=== PATIENT | female | born 1960 | race Caucasian/White ===

== ENCOUNTER 2019-02-13 19:21 | Emergency (ER) | payer MEDICARE, MEDICAID ==
[~2019-02-13] VITALS: Ht 175.3 cm; Wt 68.2 kg
[~2019-02-13 19:21] MED LIST: ACET-890 PO; ACYC-202 PO; CARB15DR23 EACH EAR; COU1T PO; COU5T PO; DIAZ10TA PO; DIVA500T9 PO; DOCU100C40 PO; ESCI10TA PO; ESOM20CA PO; FURO-150 PO; MAGN800O PO; MULT-1085 PO; OXCA300T16 PO; SIME80TA PO; [UNRECOGNIZED DRUG - OTHER] TOP; [UNRECOGNIZED DRUG - OTHER] TP
[2019-02-13 19:23] VITALS: BP 165/71
[2019-02-13] MEDS ORDERED: acetaminophen 325mg tablet PO ONE (20:45)
[2019-02-13] MEDS ORDERED: HYDROcodone/acetaminophen 5mg/325mg tablet PO ONE (21:10)
== END 2019-02-13 21:21 | disposition home or self-care (01) ==
LOC: ER 19:21
DX: S42.032A Displaced fracture of lateral end of left clavicle, initial encounter for closed fracture (principal); Z88.8 Allergy status to other drugs, medicaments and biological substances; Z79.01 Long term (current) use of anticoagulants; Z79.2 Long term (current) use of antibiotics; Z86.718 Personal history of other venous thrombosis and embolism; W18.39XA Other fall on same level, initial encounter; Y93.89 Activity, other specified; Y92.091 Bathroom in other non-institutional residence as the place of occurrence of the external cause; Y99.8 Other external cause status
CPT/HCPCS: 73000; 73030; 99284

== ENCOUNTER 2019-02-25 15:18 | Outpatient (CLI) | payer MEDICARE, MEDICAID | END 2019-02-25 15:57 | disposition home or self-care (01) | LOC: ORTHO 15:18 | PROVIDERS: ATTEND Orthopaedic Surgery | DX: S42.022D Displaced fracture of shaft of left clavicle, subsequent encounter for fracture with routine healing (principal); X58.XXXD Exposure to other specified factors, subsequent encounter | CPT/HCPCS: 73000; G0463 ==

== ENCOUNTER 2019-04-22 15:32 | Outpatient (CLI) | payer MEDICARE, MEDICAID | END 2019-04-22 16:11 | disposition home or self-care (01) | LOC: ORTHO 15:32 | PROVIDERS: ATTEND Orthopaedic Surgery | DX: S42.012D Anterior displaced fracture of sternal end of left clavicle, subsequent encounter for fracture with routine healing (principal) | CPT/HCPCS: 73000; G0463 ==

== ENCOUNTER 2019-06-26 09:44 | Outpatient (CLI) | payer MEDICARE, MEDICAID ==
[~2019-06-26 09:44] MED LIST changes: +CARB-273 EACH EAR; -CARB15DR23 EACH EAR
== END 2019-06-26 10:07 | disposition home or self-care (01) ==
LOC: ORTHO 09:44
PROVIDERS: ATTEND Orthopaedic Surgery
DX: S42.002D Fracture of unspecified part of left clavicle, subsequent encounter for fracture with routine healing (principal)
CPT/HCPCS: 73000; G0463

== ENCOUNTER 2021-10-15 09:33 | Emergency (ER) | payer MEDICARE, MEDICAID ==
[~2021-10-15] VITALS: Ht 177.8 cm; Wt 63.6 kg
[~2021-10-15 09:33] MED LIST changes: +ACYC-129 PO; -ACYC-202 PO; -COU5T PO; +WARF-113 PO
[2021-10-15] MEDS ORDERED: LIDOcaine 1% w/EPI 1:100,000 30ml vial (MDV) ONE (10:00)
[2021-10-15 11:56] LABS: ALANINE AMINOTRANSFERASE 36 U/L (12-78); ALBUMIN 3.5 G/DL (3.4-5.0); ALBUMIN/GLOBULIN RATIO 0.9 (1.1-1.5); ALKALINE PHOSPHATASE 102 IU/L (46-116); ANION GAP 9 (8-16); ASPARTATE AMINO TRANSFERASE 32 U/L (10-37); BILIRUBIN,TOTAL 0.2 MG/DL (0.1-1.0); BLOOD UREA NITROGEN 28 MG/DL (7-18); BUN/CREATININE RATIO 41.2 (6.6-38.0); CALCIUM 9.4 MG/DL (8.5-10.1); CHLORIDE 107 MMOL/L (99-107); CREATININE 0.68 MG/DL (0.40-0.90); GLUCOSE 79 MG/DL (70-104); POTASSIUM 4.3 MMOL/L (3.5-5.1); SODIUM 146 MMOL/L (135-145); TOTAL CARBON DIOXIDE 30.2 MMOL/L (24-32); TOTAL PROTEIN 7.4 G/DL (6.4-8.2); eGFR 88 ML/MIN
[2021-10-15 12:04] LABS: MAGNESIUM 2.3 MG/DL (1.5-2.4)
--- NOTE | 2021-10-15 12:16 | NUR ---
Pt not tolerating BP cuff
[2021-10-15 12:35] VITALS: BP 102/82
== END 2021-10-15 12:43 | disposition home or self-care (01) ==
LOC: ER 09:34
DX: S01.01XA Laceration without foreign body of scalp, initial encounter (principal); Z86.718 Personal history of other venous thrombosis and embolism; Z88.8 Allergy status to other drugs, medicaments and biological substances; Z79.899 Other long term (current) drug therapy; Z79.01 Long term (current) use of anticoagulants; Z79.2 Long term (current) use of antibiotics; W19.XXXA Unspecified fall, initial encounter; Y93.89 Activity, other specified; Y92.89 Other specified places as the place of occurrence of the external cause; Y99.8 Other external cause status; S09.90XA Unspecified injury of head, initial encounter; S06.0X0A Concussion without loss of consciousness, initial encounter
CPT/HCPCS: 12001; 36415; 70450; 71045; 80053; 83735; 83880; 84484; 93005; 99285; J3490

== ENCOUNTER 2022-04-30 11:06 | Emergency (ER) | payer MEDICARE, MEDICAID ==
[~2022-04-30] VITALS: Ht 172.7 cm; Wt 59.1 kg
[2022-04-30 11:22] VITALS: BP 109/48
== END 2022-04-30 12:50 | disposition home or self-care (01) ==
LOC: ER 11:06
DX: S00.81XA Abrasion of other part of head, initial encounter (principal); Z88.8 Allergy status to other drugs, medicaments and biological substances; W19.XXXA Unspecified fall, initial encounter; Y93.89 Activity, other specified; Y92.89 Other specified places as the place of occurrence of the external cause; Y99.8 Other external cause status
CPT/HCPCS: 99281

== ENCOUNTER 2022-05-08 20:47 | Emergency (ER) | payer MEDICARE, MEDICAID ==
[~2022-05-08] VITALS: Ht 172.7 cm; Wt 60.0 kg
[2022-05-09 00:37] VITALS: BP 110/80
== END 2022-05-09 00:40 | disposition home or self-care (01) ==
LOC: ER 20:47
DX: S00.83XA Contusion of other part of head, initial encounter (principal); Z88.1 Allergy status to other antibiotic agents; Z79.899 Other long term (current) drug therapy; Z88.8 Allergy status to other drugs, medicaments and biological substances; Z79.1 Long term (current) use of non-steroidal anti-inflammatories (NSAID); Z79.2 Long term (current) use of antibiotics; W18.39XA Other fall on same level, initial encounter; Y93.89 Activity, other specified; Y92.89 Other specified places as the place of occurrence of the external cause; Y99.8 Other external cause status
CPT/HCPCS: 99284

== ENCOUNTER 2022-05-22 19:36 | Emergency (ER) | payer MEDICARE, MEDICAID ==
[~2022-05-22] VITALS: Ht 154.9 cm; Wt 61.4 kg
[2022-05-22 19:46] VITALS: BP 104/53
[2022-05-23] MEDS ORDERED: bacitracin 15gm ointment TP ONE (01:00)
== END 2022-05-23 01:47 | disposition home or self-care (01) ==
LOC: ER 19:37
DX: S01.111A Laceration without foreign body of right eyelid and periocular area, initial encounter (principal); X58.XXXA Exposure to other specified factors, initial encounter; Y93.89 Activity, other specified; Y92.89 Other specified places as the place of occurrence of the external cause; Y99.8 Other external cause status
CPT/HCPCS: 12011; 12013; 99284; A6449

== ENCOUNTER 2022-08-14 10:59 | Emergency (ER) | payer MEDICARE, MEDICAID ==
[~2022-08-14] VITALS: Ht 175.3 cm; Wt 61.0 kg
== END 2022-08-14 11:36 | disposition home or self-care (01) ==
LOC: ER 11:00
DX: S00.03XA Contusion of scalp, initial encounter (principal); Z86.718 Personal history of other venous thrombosis and embolism; Z88.8 Allergy status to other drugs, medicaments and biological substances; Z79.899 Other long term (current) drug therapy; X58.XXXA Exposure to other specified factors, initial encounter; Y93.89 Activity, other specified; Y92.89 Other specified places as the place of occurrence of the external cause; Y99.8 Other external cause status
CPT/HCPCS: 99281

== ENCOUNTER 2022-12-14 07:55 | Emergency (ER) | payer MEDICARE, MEDICAID ==
[~2022-12-14] VITALS: Ht 172.7 cm; Wt 61.4 kg
[2022-12-14] MEDS ORDERED: normal saline 1000ML IV soln IVB ONE (10:15)
[2022-12-14] MEDS ORDERED: ondansetron/PF 4mg/2ml inj IV ONE (10:15)
[2022-12-14] MEDS ORDERED: MIDAZolam 5mg/ml 2ml vial IV ONE ×2 (10:15→14:40)
--- NOTE | 2022-12-14 10:46 | NUR ---
PER JOE Leblanc ADMIN 2.5MG OF VERSED IN INCREMENTS. RN ADMIN 2.5MG AT THIS TIME. RN DID NOT SIGN MED OFF ON SEP UNTIL MAX DOSE REACHED.
--- NOTE | 2022-12-14 10:47 | NUR ---
PT PREPARING TO GO TO CT. RN WILL START BOLUS ONCE SHE RETURNS.
--- NOTE | 2022-12-14 11:53 | NUR ---
PT TAKEN TO CT. RN WILL START BOLUS ONCE SHE RETURNS.
--- NOTE | 2022-12-14 12:02 | NUR ---
RN CALLED TO CT TO PROVIDE MORE VERSED FOR PT. RN ADMIN ANOTHER 2.5 MG VERSED AND WILL REMAIN WITH PT THROUGHOUT CT.
[2022-12-14] MEDS ORDERED: LIDOcaine/epinephrine/tetracaine TOPICAL sol 3 ML syringe TOP ONE (12:30)
[2022-12-14] MEDS ORDERED: TETanus/Pertussis (Acell)/Diphther VAC/PF (Tdap-Adult) 0.5ml syringe IMVAC ONE (12:30)
[2022-12-14] MEDS ORDERED: LIDOcaine 1% W/epiNEPHrine 1:100,000 20ml vial IJ ONE (12:30)
--- NOTE | 2022-12-14 12:30 | NUR ---
RN CALLED [facility] TO NOTIFY THEM THAT PT IS READY FOR US.
--- NOTE | 2022-12-14 15:12 | NUR ---
4 SUTURES PLACED BY HERIBERTO PERDOMO TO PT LEFT EYEBROW WITHOUT COMPLICATION. RN CLEANDED WITH CHLORAHEXADINE AND LEFT PARTICLE BOARD SUPERVISOR.
--- NOTE | 2022-12-14 15:24 | NUR ---
PT O2 SAT 88% ON 1 L. RN INCREASED O2 TO 2 L AND SAT INCREASED TO 95%. PT IS STILL VERY SLEEPY. RN NOTIFIED JOE LOUIS. PER JOE ALLOW PT TO WAKE UP MORE AND GET BACK TO BASELINE ON RA AND THEN DISCHARGE. RN WILL CONT TO MONITOR.
[2022-12-14 16:12] VITALS: BP 114/54
== END 2022-12-14 16:27 | disposition home or self-care (01) ==
LOC: ER 07:55
DX: S01.112A Laceration without foreign body of left eyelid and periocular area, initial encounter (principal); Z88.8 Allergy status to other drugs, medicaments and biological substances; Z79.899 Other long term (current) drug therapy; Z79.1 Long term (current) use of non-steroidal anti-inflammatories (NSAID); Z79.2 Long term (current) use of antibiotics; W18.39XA Other fall on same level, initial encounter; Y93.89 Activity, other specified; Y92.89 Other specified places as the place of occurrence of the external cause; Y99.8 Other external cause status
CPT/HCPCS: 12011; 70450; 70486; 93971; 96361; 96374; 96375; 96376; 99285; J2250; J2405; J3490; J7030; A4615

== ENCOUNTER 2023-01-11 09:53 | Inpatient (IN) | payer MEDICARE, MEDICAID ==
[~2023-01-11] VITALS: Ht 167.6 cm; Wt 57.7 kg
[~2023-01-11 09:53] MED LIST changes: -ACYC-129 PO; +ASPI-611 PO; -CARB-273 EACH EAR; +CARB15DR91 EACH EAR; -COU1T PO; -DIAZ10TA PO; +DIAZ10TA4 PO; -ESCI10TA PO; -ESOM20CA PO; -FURO-150 PO; +IBUP-1985 PO; +LEVO-65 PO; +MELA5TAB12 PO; +OLAN10TA73 PO; +OLAN5TAB75 PO; +POLY119P2 PO; +PROP10TA10 PO; +SELE207S8 TOP; -SIME80TA PO; -WARF-113 PO; -[UNRECOGNIZED DRUG - OTHER] TOP; -[UNRECOGNIZED DRUG - OTHER] TP
[2023-01-11 10:34] LABS: BASOPHILS % (AUTO) 0.4 % (0-1); EOSINOPHILS % (AUTO) 0.4 % (0-6); LYMPHOCYTES # (AUTO) 0.3 X10'3 (1.1-4.8); MONOCYTES # (AUTO) 0.7 X10'3 (0-0.9); NEUTROPHILS # (AUTO) 2.8 X10'3 (1.8-7.7); WHITE BLOOD COUNT 3.8 X10'3 (4.5-11.0)
[2023-01-11 10:36] LABS: HEMOGLOBIN 12.2 g/dl (12.0-16.0); LYMPHOCYTES % (AUTO) 7.2 % (21-51); MEAN CORPUSCULAR HEMOGLOBIN 29.9 PG (27.0-31.0); MEAN CORPUSCULAR HGB CONC 33.1 g/dL (33.0-36.5); MEAN CORPUSCULAR VOLUME 90.2 FL (78-98); MEAN PLATELET VOLUME 8.6 FL (7.4-10.4); MONOCYTES % (AUTO) 17.5 % (2-12); NEUTROPHILS % (AUTO) 74.5 % (42-75); PLATELET COUNT 157 X10'3 (140-440)
[2023-01-11 10:53] LABS: ALANINE AMINOTRANSFERASE 45 U/L (12-78); ALBUMIN 2.2 G/DL (3.4-5.0); ALBUMIN/GLOBULIN RATIO 0.6 (1.1-1.5); ALKALINE PHOSPHATASE 61 IU/L (46-116); ANION GAP 11 (8-16); ASPARTATE AMINO TRANSFERASE 87 U/L (10-37); BILIRUBIN,TOTAL 0.2 MG/DL (0.1-1.0); BLOOD UREA NITROGEN 19 MG/DL (7-18); BUN/CREATININE RATIO 20.2 (10.0-20.0); CHLORIDE 99 MMOL/L (99-107); CREATININE 0.94 MG/DL (0.40-0.90); GLUCOSE 138 MG/DL (70-104); POTASSIUM 4.2 MMOL/L (3.5-5.1); SODIUM 129 MMOL/L (135-145); TOTAL CARBON DIOXIDE 19.4 MMOL/L (24-32); TOTAL PROTEIN 6.1 G/DL (6.4-8.2); eGFR 61 ML/MIN
[2023-01-11] MEDS ORDERED: CefTRIAXone 2gm/D5W 50ml BAG 50 ML IV ONE (11:20)
[2023-01-11] MEDS ORDERED: normal saline 1000ML IV soln IV ONE (11:20)
[2023-01-11 12:00] LABS: PLATELET ESTIMATE NORMAL; TOTAL CELLS COUNTED 100
[2023-01-11 12:34] LABS: CLARITY,URINE CLEAR (Clear); COLOR,URINE YELLOW (Yellow); GLUCOSE, URINE NEGATIVE (Neg); KETONES,URINE TRACE mg/dl (Neg); LEUKOCYTE ESTERASE ,URINE NEGATIVE (Neg); NITRITES, URINE NEGATIVE (Neg); OCCULT BLOOD,URINE TRACE-INTACT (Neg); PROTEIN,URINE TRACE mg/dl (Neg); UROBILINOGEN,URINE 0.2 E.U/dL (0.2-1.0)
[2023-01-11 12:36] LABS: UA COLLECTION TYPE FOLEY CATH
[2023-01-11 12:44] LABS: BACTERIA,URINE FEW /HPF (Neg); MUCUS STRANDS NONE SEEN /LPF (Neg); SQUAMOUS EPITHELIAL CELL,UR FEW /LPF (FEW); WBC,URINE 0-4 /HPF (0-4)
[2023-01-11] MEDS ORDERED: FURO20TA4 PO (13:16)
[2023-01-11] MEDS ORDERED: OMEP40CA21 PO (13:16)
[2023-01-11] MEDS ORDERED: SIME125C43 PO (13:18)
[2023-01-11] MEDS ORDERED: NEOM28.37 TOP (13:18)
[2023-01-11] MEDS ORDERED: potassium Cl 40MEQ/1/2NS 520ml 520 ML IV PRN (14:20)
[2023-01-11] MEDS ORDERED: magnesium 2GM in 50ml NS 50 ML IV PRN (14:20)
[2023-01-11] MEDS ORDERED: ondansetron/PF 4mg/2ml inj IV PRN (14:20)
[2023-01-11] MEDS ORDERED: magnesium 4gm in 100ml NS 100 ML IV PRN (14:20)
[2023-01-11] MEDS ORDERED: magnesium Cl slow-release 64mg tablet PO PRN (14:20)
[2023-01-11] MEDS ORDERED: potassium Cl 20 mEq SR tablet PO PRN ×2 (14:20)
[2023-01-11] MEDS: normal saline 1000ml 1,000 ML IV SCH (15:01)
[2023-01-11] MEDS: acetaminophen 325mg tablet PO PRN (16:23)
--- NOTE | 2023-01-11 17:33 | NUR ---
bed 4 temp was 101.8 gave 650 tylenol, after 1 hour is now 103.1. paged hospitalist for orders
[2023-01-11] MEDS ORDERED: ibuprofen tablet 400 MG TABLET PO ONE (18:15)
--- NOTE | 2023-01-11 19:10 | NUR ---
pt tolerated PO motrin well, caregiver at bedside
--- NOTE | 2023-01-11 19:30 | NUR ---
Received report from ER nurse and assumed care, Pt moved from ER to RM 3019. Wheelchair sent home with caregiver to care facility, tele box connected orientated to room and call light, no s/s of distress, vitals stable will continue to monitor.
--- NOTE | 2023-01-11 19:30 | NUR ---
Patient arrived via gurney on room air and was transferred to bed via slide-board. Per caregiver Valeria who is at the bedside patient is normally ambulatory however uses a wheelchair r/t multiple falls. Patient is nonverbal and does not follow verbal commands however is able to follow hand over hand direction. Caregiver informed this nurse that patient is a feeder however is able to hydrate herself when given a sippy cup. Will ensure this is obtained for patient. Kacy Hermosillo RN was aware of all of this. He is assessing and orienting patient to room and call light.
[2023-01-11 19:45] VITALS: BP 90/50; PULSE 105; RESP 14; TEMP 101.2; O2SAT 95
[2023-01-11 20:00] VITALS: RESP 18
[2023-01-11] MEDS: K and/or MAG REPLACEMENT MC SCH (20:00)
--- NOTE | 2023-01-11 20:00 | NUR ---
Unable to obtain orthostatic vitals r/t patient condition on shift, confusion and weakness, not able to stand.
[2023-01-11 22:00] VITALS: BP 96/68; PULSE 89; RESP 18; TEMP 98.1; O2SAT 96
[2023-01-12] VITALS (7 sets, daily range): BP systolic 98–139; BP diastolic 46–91; PULSE 95–122; RESP 11–29; TEMP 98.3–102.9; O2SAT 95–98
[2023-01-12] MEDS: normal saline 1000ml 1,000 ML IV SCH ×3 (00:59→19:25)
--- NOTE | 2023-01-12 06:12 | NUR ---
Reported off to Matilda BULLOCK. Patient is resting with relaxed and unlabored respirations on RA. In no apparent distress. Bed alarms on and audible. Call light and items of frequent use within reach.
[2023-01-12 07:54] LABS: BASOPHILS % (AUTO) 1.2 % (0-1); EOSINOPHILS # (AUTO) 0.1 X10'3 (0-0.9); EOSINOPHILS % (AUTO) 2.9 % (0-6); HEMATOCRIT 33.5 % (35.0-45.0); HEMOGLOBIN 11.1 g/dl (12.0-16.0); LYMPHOCYTES # (AUTO) 0.2 X10'3 (1.1-4.8); LYMPHOCYTES % (AUTO) 9.8 % (21-51); MEAN CORPUSCULAR HEMOGLOBIN 30.1 PG (27.0-31.0); MEAN CORPUSCULAR HGB CONC 33.3 g/dL (33.0-36.5); MEAN CORPUSCULAR VOLUME 90.4 FL (78-98); MONOCYTES # (AUTO) 0.3 X10'3 (0-0.9); MONOCYTES % (AUTO) 15.3 % (2-12); NEUTROPHILS # (AUTO) 1.5 X10'3 (1.8-7.7); NEUTROPHILS % (AUTO) 70.8 % (42-75); PLATELET COUNT 123 X10'3 (140-440); WHITE BLOOD COUNT 2.1 X10'3 (4.5-11.0)
[2023-01-12 07:56] LABS: ANION GAP 10 (8-16); BLOOD UREA NITROGEN 14 MG/DL (7-18); BUN/CREATININE RATIO 23.3 (10.0-20.0); CALCIUM 7.9 MG/DL (8.5-10.1); CHLORIDE 102 MMOL/L (99-107); GLUCOSE 83 MG/DL (70-104); MAGNESIUM 1.8 MG/DL (1.5-2.4); POTASSIUM 3.8 MMOL/L (3.5-5.1); SODIUM 134 MMOL/L (135-145); TOTAL CARBON DIOXIDE 22.1 MMOL/L (24-32); eGFR > 90 ML/MIN
[2023-01-12] MEDS: K and/or MAG REPLACEMENT MC SCH ×2 (08:00→19:03)
[2023-01-12] MEDS ORDERED: magnesium hydroxide 30ml (MOM) UD suspension PO PRN (08:00)
--- NOTE | 2023-01-12 08:44 | NUR ---
Noted pt with a low Moy of 12. Per EMR pt with BLE non-pitting edema and a small abrasion to right knee. Pt currently on a pureed diet with thin liquids which were ST recs 12/22 at previous admit. Pending documentation of PO intake at this time. Will continue to follow and make recommendations as appropriate. Addendum: 01/12/23 at [address] Amended: Links added.
[2023-01-12] MEDS: aspirin 81mg, enteric-coated 1 TAB TABLET.DR PO SCH (10:10)
[2023-01-12] MEDS: multivitamins, therapeutics tablet PO SCH (10:10)
[2023-01-12] MEDS: acetaminophen 325mg tablet PO PRN ×2 (10:10→16:41)
[2023-01-12] MEDS: OLANZAPINE 5 MG TABLET PO SCH ×2 (10:11→19:03)
[2023-01-12] MEDS: SIMETHICONE 125 MG CAPSULE PO SCH ×4 (10:12→21:03)
[2023-01-12] MEDS: oxcarbazepine 150mg tablet PO SCH ×2 (10:12→21:03)
[2023-01-12] MEDS: divalproex sodium 500mg tablet.DR PO SCH ×2 (10:13→19:03)
[2023-01-12] MEDS: pantoprazole 40mg Tablet.DR PO SCH (10:23)
--- NOTE | 2023-01-12 11:15 | NUR ---
Dr Menchaca made aware of continues temp 102.5 after tylenol adminstration. cool rag applied to forehead and ice packs to groin. Will continue to monitor.
--- NOTE | 2023-01-12 12:40 | NUR ---
Temp decreased to 101.3. Will continue with nursing measures to bring temp down. MD aware. COVID swab sent to lab per md orders.
[2023-01-12 12:47] LABS: PLATELET ESTIMATE NORMAL; TOTAL CELLS COUNTED 100
--- NOTE | 2023-01-12 14:07 | NUR ---
PRESSURE ULCER EDUCATION: DEFINITION: A pressure ulcer is an area of skin that breaks down when you stay in one position too long. The constant pressure against the skin reduces the blood flow to that area and the affected tissue dies. CAUSES: "Being bedridden or in a wheelchair "Fragile skin "Having a chronic condition, such as diabetes or vascular disease "Inability to move certain parts of your body without assistance "Older age "Incontinence of urine or stool SYMPTOMS: "A reddened area that DOES NOT turn white when pressed on - this can be the beginning of a pressure ulcer "A blister, deep sore or a crater - these can be advanced pressure ulcers FIRST AID: "Relieve the pressure on this area "Keep the area clean and dry "Call your primary doctor if you see any of the above symptoms "DO NOT massage the area "DO NOT use a donut shaped or ring shaped pillow- these actually interfere with the blood flow and cause complications PREVENTION: "Check for pressure ulcers everyday "Change position at least every two hours to relieve pressure "Use items that help relieve pressure- pillows, sheepskin, foam padding, and powders. "Keep skin clean and dry "Eat healthy well balanced meals "Exercise daily IF YOU SEE ANY OF THESE SYMPTOMS WHILE IN THE HOSPITAL - TELL YOUR NURSE IMMEDIATELY. IF YOU SEE ANY OF THESE SYMPTOMS WHILE AT HOME OR HAVE ANY QUESTIONS OR CONCERNS ABOUT PRESSURE ULCERS - CALL YOUR PRIMARY DOCTOR IMMEDIATELY. Addendum: 01/12/23 at 1407 by Tremayne Fuentes RN Amended: Links added.
--- NOTE | 2023-01-12 15:35 | NUR ---
Pt chewing on gown and crying. Pt is nonverbal. assessed mouth and redness noted behind top, front left tooth. Dr Bagley made aware and reports he will put in new orders.
--- NOTE | 2023-01-12 17:50 | NUR ---
Per reggie Stoddard to pao burger. NOC KOBE Maxwell aware and will carry out order.
--- NOTE | 2023-01-12 18:35 | NUR ---
Received report from primary care nurse Matilda BULLOCK. Assumed patient care. Patient resting with relaxed and unlabored respirations on room air. In no apparent distress. Call light and items of frequent use within reach. Bed alarm on and audible. Will continue to monitor for changes.
[2023-01-12] MEDS: clindamycin 150mg capsule PO SCH ×2 (18:52→23:30)
--- NOTE | 2023-01-12 19:27 | NUR ---
Unsafe to perform orthostatics at this time. Will make further attempts at a later time
[2023-01-12] MEDS: olanzapine 10mg tablet PO SCH (21:03)
[2023-01-12] MEDS: Melatonin 3mg tablet PO SCH (21:03)
[2023-01-13] VITALS (7 sets, daily range): BP systolic 127–133; BP diastolic 76–95; PULSE 87–127; RESP 18–24; TEMP 98.2–103.4; O2SAT 96–97
[2023-01-13] MEDS: morphine 2 MG/ML inj. syringe IV PRN (02:49)
--- NOTE | 2023-01-13 03:30 | NUR ---
Patient not able to follow commands for orthostatic vitals and pushes backwards when trying to sit up. Unable to perform orthostatic vitals.
[2023-01-13] MEDS: clindamycin 150mg capsule PO SCH ×3 (05:14→17:28)
[2023-01-13] MEDS: normal saline 1000ml 1,000 ML IV SCH ×2 (05:14→17:34)
[2023-01-13] MEDS: acetaminophen 325mg tablet PO PRN ×2 (05:21→17:32)
--- NOTE | 2023-01-13 05:35 | NUR ---
Paged regarding temp 103.1. Cooling measures in place, administered Tylenol per order. Pending call back. Will continue to monitor for changes.
--- NOTE | 2023-01-13 06:30 | NUR ---
Patient in room PCU 3019. I have received report from Alissa BULLOCK and had the opportunity to ask questions and assume patient care.
--- NOTE | 2023-01-13 06:38 | NUR ---
Reported off to Katy LEON. Patient resting with relaxed and unlabored respirations on room air. In no apparent distress. Bed alarms on and audible.
[2023-01-13 06:57] LABS: BASOPHILS % (AUTO) 0.9 % (0-1); EOSINOPHILS % (AUTO) 1.1 % (0-6); HEMATOCRIT 28.8 % (35.0-45.0); HEMOGLOBIN 9.5 g/dl (12.0-16.0); LYMPHOCYTES # (AUTO) 0.2 X10'3 (1.1-4.8); LYMPHOCYTES % (AUTO) 15.1 % (21-51); MEAN CORPUSCULAR HEMOGLOBIN 29.4 PG (27.0-31.0); MEAN CORPUSCULAR HGB CONC 32.8 g/dL (33.0-36.5); MEAN CORPUSCULAR VOLUME 89.6 FL (78-98); MEAN PLATELET VOLUME 9.4 FL (7.4-10.4); MONOCYTES # (AUTO) 0.3 X10'3 (0-0.9); MONOCYTES % (AUTO) 17.3 % (2-12); NEUTROPHILS # (AUTO) 1.1 X10'3 (1.8-7.7); NEUTROPHILS % (AUTO) 65.6 % (42-75); PLATELET COUNT 96 X10'3 (140-440); RED BLOOD COUNT 3.21 X10'6 (4.20-5.60); RED CELL DISTRIBUTION WIDTH 15.4 % (11.5-14.5); WHITE BLOOD COUNT 1.6 X10'3 (4.5-11.0)
[2023-01-13 06:58] LABS: ALBUMIN 1.7 G/DL (3.4-5.0); ANION GAP 11 (8-16); BLOOD UREA NITROGEN 10 MG/DL (7-18); BUN/CREATININE RATIO 11.8 (10.0-20.0); CALCIUM 7.2 MG/DL (8.5-10.1); CHLORIDE 99 MMOL/L (99-107); CREATININE 0.85 MG/DL (0.40-0.90); GLUCOSE 136 MG/DL (70-104); MAGNESIUM 1.7 MG/DL (1.5-2.4); POTASSIUM 3.4 MMOL/L (3.5-5.1); SODIUM 131 MMOL/L (135-145); TOTAL CARBON DIOXIDE 20.7 MMOL/L (24-32); eGFR 68 ML/MIN
[2023-01-13] MEDS: K and/or MAG REPLACEMENT MC SCH ×2 (08:00→20:00)
[2023-01-13] MEDS: multivitamins, therapeutics tablet PO SCH (08:50)
[2023-01-13] MEDS: pantoprazole 40mg Tablet.DR PO SCH (08:50)
[2023-01-13] MEDS: OLANZAPINE 5 MG TABLET PO SCH ×2 (08:50→20:25)
[2023-01-13] MEDS: oxcarbazepine 150mg tablet PO SCH ×2 (08:51→20:21)
[2023-01-13] MEDS: divalproex sodium 500mg tablet.DR PO SCH ×2 (08:51→20:20)
[2023-01-13] MEDS: aspirin 81mg, enteric-coated 1 TAB TABLET.DR PO SCH (08:51)
[2023-01-13] MEDS: SIMETHICONE 125 MG CAPSULE PO SCH ×4 (08:52→20:23)
[2023-01-13 09:36] LABS: PLATELET ESTIMATE NORMAL; TOTAL CELLS COUNTED 100
--- NOTE | 2023-01-13 10:36 | NUR ---
Sent to Dr Bagley - MESSAGE: [id number] Oriana Bloom - B/P @ 1020 is 88/57, previous 629 B/P 81/. Katy [phone]
--- NOTE | 2023-01-13 18:20 | NUR ---
Patient in room PCU 3019. I have received report from EDWARD BARRAGAN and had the opportunity to ask questions and assume patient care.
[2023-01-13] MEDS: Melatonin 3mg tablet PO SCH (20:22)
[2023-01-13] MEDS: olanzapine 10mg tablet PO SCH (20:23)
[2023-01-14] VITALS (7 sets, daily range): BP systolic 95–147; BP diastolic 42–76; PULSE 70–118; RESP 18–24; TEMP 97.3–101.2; O2SAT 94–99
[2023-01-14] MEDS: clindamycin 150mg capsule PO SCH ×5 (00:18→23:59)
[2023-01-14] MEDS: normal saline 1000ml 1,000 ML IV SCH (03:36)
--- NOTE | 2023-01-14 06:37 | NUR ---
Problems reprioritized. Patient report given, questions answered & plan of care reviewed with KOBE JAFFE.
--- NOTE | 2023-01-14 07:04 | NUR ---
Patient in room PCU 3019. I have received report from KOBE WEBB, and had the opportunity to ask questions and assume patient care.
[2023-01-14 07:08] LABS: BASOPHILS % (AUTO) 0.9 % (0-1); EOSINOPHILS % (AUTO) 1.6 % (0-6); HEMATOCRIT 32.2 % (35.0-45.0); HEMOGLOBIN 10.7 g/dl (12.0-16.0); LYMPHOCYTES # (AUTO) 0.4 X10'3 (1.1-4.8); MEAN CORPUSCULAR HEMOGLOBIN 29.6 PG (27.0-31.0); MEAN CORPUSCULAR HGB CONC 33.2 g/dL (33.0-36.5); MEAN PLATELET VOLUME 10.2 FL (7.4-10.4); MONOCYTES # (AUTO) 0.3 X10'3 (0-0.9); MONOCYTES % (AUTO) 16.7 % (2-12); NEUTROPHILS # (AUTO) 1.2 X10'3 (1.8-7.7); NEUTROPHILS % (AUTO) 62.8 % (42-75); PLATELET COUNT 109 X10'3 (140-440); RED BLOOD COUNT 3.62 X10'6 (4.20-5.60); RED CELL DISTRIBUTION WIDTH 15.5 % (11.5-14.5)
[2023-01-14 07:14] LABS: ALBUMIN 1.8 G/DL (3.4-5.0); ANION GAP 11 (8-16); BLOOD UREA NITROGEN 9 MG/DL (7-18); BUN/CREATININE RATIO 15.5 (10.0-20.0); CALCIUM 7.6 MG/DL (8.5-10.1); CHLORIDE 100 MMOL/L (99-107); CREATININE 0.58 MG/DL (0.40-0.90); GLUCOSE 93 MG/DL (70-104); MAGNESIUM 1.8 MG/DL (1.5-2.4); POTASSIUM 4.1 MMOL/L (3.5-5.1); SODIUM 133 MMOL/L (135-145); TOTAL CARBON DIOXIDE 22.5 MMOL/L (24-32); eGFR > 90 ML/MIN
[2023-01-14] MEDS: K and/or MAG REPLACEMENT MC SCH ×2 (08:00→20:00)
[2023-01-14] MEDS: multivitamins, therapeutics tablet PO SCH (08:24)
[2023-01-14] MEDS: oxcarbazepine 150mg tablet PO SCH ×2 (08:24→21:19)
[2023-01-14] MEDS: divalproex sodium 500mg tablet.DR PO SCH ×2 (08:24→21:19)
[2023-01-14] MEDS: OLANZAPINE 5 MG TABLET PO SCH ×2 (08:24→21:19)
[2023-01-14] MEDS: SIMETHICONE 125 MG CAPSULE PO SCH ×4 (08:25→21:00)
[2023-01-14] MEDS: pantoprazole 40mg Tablet.DR PO SCH (08:25)
[2023-01-14] MEDS: aspirin 81mg, enteric-coated 1 TAB TABLET.DR PO SCH (08:25)
[2023-01-14 09:13] LABS: PLATELET ESTIMATE NORMAL; TOTAL CELLS COUNTED 100
--- NOTE | 2023-01-14 18:29 | NUR ---
Problems reprioritized. Patient report given, questions answered & plan of care reviewed with KOBE MAHONEY.
[2023-01-14] MEDS: olanzapine 10mg tablet PO SCH (21:19)
[2023-01-14] MEDS: Melatonin 3mg tablet PO SCH (21:20)
[2023-01-14] MEDS: acetaminophen 325mg tablet PO PRN (21:21)
[2023-01-15] VITALS (13 sets, daily range): BP systolic 92–140; BP diastolic 41–88; PULSE 78–123; RESP 16–26; TEMP 97.6–103; O2SAT 95–100
[2023-01-15] MEDS: clindamycin 150mg capsule PO SCH ×4 (04:51→22:52)
[2023-01-15] MEDS: acetaminophen 325mg tablet PO PRN ×3 (04:51→20:47)
[2023-01-15 06:18] LABS: BASOPHILS % (AUTO) 0.4 % (0-1); EOSINOPHILS # (AUTO) 0.1 X10'3 (0-0.9); EOSINOPHILS % (AUTO) 2.4 % (0-6); HEMATOCRIT 32.1 % (35.0-45.0); HEMOGLOBIN 10.8 g/dl (12.0-16.0); LYMPHOCYTES # (AUTO) 0.4 X10'3 (1.1-4.8); LYMPHOCYTES % (AUTO) 15.4 % (21-51); MEAN CORPUSCULAR HEMOGLOBIN 29.7 PG (27.0-31.0); MEAN CORPUSCULAR HGB CONC 33.5 g/dL (33.0-36.5); MEAN CORPUSCULAR VOLUME 88.5 FL (78-98); MEAN PLATELET VOLUME 10.4 FL (7.4-10.4); MONOCYTES # (AUTO) 0.4 X10'3 (0-0.9); MONOCYTES % (AUTO) 13.8 % (2-12); NEUTROPHILS # (AUTO) 1.9 X10'3 (1.8-7.7); PLATELET COUNT 132 X10'3 (140-440); RED BLOOD COUNT 3.63 X10'6 (4.20-5.60); RED CELL DISTRIBUTION WIDTH 15.5 % (11.5-14.5); WHITE BLOOD COUNT 2.9 X10'3 (4.5-11.0)
--- NOTE | 2023-01-15 06:25 | NUR ---
Problems reprioritized. Patient report given, questions answered & plan of care reviewed with KOBE JAFFE.
[2023-01-15 06:38] LABS: ALBUMIN 1.9 G/DL (3.4-5.0); ANION GAP 11 (8-16); BLOOD UREA NITROGEN 14 MG/DL (7-18); BUN/CREATININE RATIO 20.9 (10.0-20.0); CALCIUM 7.9 MG/DL (8.5-10.1); CHLORIDE 101 MMOL/L (99-107); CREATININE 0.67 MG/DL (0.40-0.90); GLUCOSE 110 MG/DL (70-104); POTASSIUM 3.6 MMOL/L (3.5-5.1); SODIUM 135 MMOL/L (135-145); TOTAL CARBON DIOXIDE 22.6 MMOL/L (24-32); eGFR 89 ML/MIN
--- NOTE | 2023-01-15 07:09 | NUR ---
Patient in room PCU 3019. I have received report from KOBE MAHONEY, and had the opportunity to ask questions and assume patient care. PT RESTING COMFORTABLY. PT TEMP 100.2, TYLENOL GIVEN BY NOC NURSE. PT RESTING COMFORTABLY, NO S/S OF DISTRESS. WILL CONTINUE TO MONITOR.
[2023-01-15] MEDS: K and/or MAG REPLACEMENT MC SCH ×2 (07:17→20:00)
[2023-01-15] MEDS ORDERED: SELENIUM SULFIDE TOP SCH (08:00)
[2023-01-15] MEDS ORDERED: ALOE VERA TOP SCH (08:00)
[2023-01-15 08:10] LABS: PLATELET ESTIMATE NORMAL; TOTAL CELLS COUNTED 100
[2023-01-15 08:11] LABS: LARGE PLATELETS MODERATE
[2023-01-15] MEDS: oxcarbazepine 150mg tablet PO SCH ×2 (08:20→22:52)
[2023-01-15] MEDS: SIMETHICONE 125 MG CAPSULE PO SCH ×4 (08:20→21:00)
[2023-01-15] MEDS: OLANZAPINE 5 MG TABLET PO SCH ×2 (08:21→20:47)
[2023-01-15] MEDS: aspirin 81mg, enteric-coated 1 TAB TABLET.DR PO SCH (08:21)
[2023-01-15] MEDS: pantoprazole 40mg Tablet.DR PO SCH (08:21)
[2023-01-15] MEDS: multivitamins, therapeutics tablet PO SCH (08:21)
[2023-01-15] MEDS: divalproex sodium 500mg tablet.DR PO SCH ×2 (08:21→20:47)
[2023-01-15 11:16] LABS: CLARITY,URINE CLEAR (Clear); COLOR,URINE YELLOW (Yellow); GLUCOSE, URINE NEGATIVE (Neg); KETONES,URINE NEGATIVE (Neg); LEUKOCYTE ESTERASE ,URINE NEGATIVE (Neg); NITRITES, URINE NEGATIVE (Neg); OCCULT BLOOD,URINE NEGATIVE (Neg); PROTEIN,URINE NEGATIVE (Neg)
[2023-01-15 11:19] LABS: UA COLLECTION TYPE NON-SPECIFIED
--- NOTE | 2023-01-15 15:03 | NUR ---
Initial: Pt admit DX dental abscess, leukopenia, and improving thrombocytopenia w/ hx developmental delay non-verbal per EMR. Pt PO ~86% avg initial pureed/thin meals w/ frequent 100% meeting estimated needs. Noted pureed/thin diet was CONSULTING ANALYST recs prior 12/22 admit. LBM 01/14 per EMR. No nutrition interventions at this time. Will continue to follow. Rec: 1. continue pureed/thin diet w/ sippy cup per MD; consider CONSULTING ANALYST BSS if PO tolerance concerns- pureed/thin per CONSULTING ANALYST prior 12/22 admit 2. routine bowel care 3. routine MVM per physician 4. weekly wt Addendum: 01/15/23 at [address] Amended: Links added.
--- NOTE | 2023-01-15 18:45 | NUR ---
Problems reprioritized. Patient report given, questions answered & plan of care reviewed with KOBE MAHONEY.
[2023-01-15] MEDS: enoxaparin 40mg/0.4ml syringe SUBCUT SCH (20:48)
--- NOTE | 2023-01-15 21:21 | NUR ---
PT HAS [address] ROCK WHO SAID HE WILL LOOK UP PATIENT AND PUT IN ORDERS. TYLENOL HAS BEEN GIVEN AND COOL CLOTHS APPLIED TO BACK OF NECK AND FOREHEAD. WILL AWAIT ORDERS FROM DR ROCK.
[2023-01-15] MEDS ORDERED: ringers solution, lacted 1,000 ML IV ONE (21:50)
[2023-01-15] MEDS: Melatonin 3mg tablet PO SCH (22:53)
[2023-01-15] MEDS: olanzapine 10mg tablet PO SCH (22:53)
[2023-01-15] MEDS: vancomycin/NS 1 GM ADD-VANTAGE 250 ML IV SCH (22:54)
[2023-01-15] MEDS: ipratropium/albuterol 3ml nebule NEB SCH (23:06)
[2023-01-16] VITALS (27 sets, daily range): BP systolic 97–160; BP diastolic 38–75; PULSE 65–131; RESP 14–23; TEMP 97.2–102; O2SAT 95–99
[2023-01-16 00:27] LABS: D-DIMER 3.99 MG/L FEU (0-0.50)
[2023-01-16 00:37] LABS: CREATINE KINASE 641 U/L (26-192); LIPASE < 50 U/L (73-393); PHOSPHORUS 3.8 MG/DL (2.3-4.5)
[2023-01-16 00:51] LABS: CARBAMAZEPINE (TEGRETOL) < 0.5 UG/ML (4.0-12.0)
[2023-01-16] MEDS: piperacillin/tazo 3.375gm/50ml 50 ML IV SCH ×3 (02:02→16:41)
[2023-01-16] MEDS: ipratropium/albuterol 3ml nebule NEB SCH ×6 (03:03→23:07)
[2023-01-16] MEDS: clindamycin 150mg capsule PO SCH (04:25)
[2023-01-16] MEDS: acetaminophen 325mg tablet PO PRN ×4 (04:26→23:50)
--- NOTE | 2023-01-16 05:28 | NUR ---
PT TEMP BACK UP TO 102.3 AXILLARY; TYLENOL GIVEN; COOL WASH RAGS APPLIED TO FOREHEAD AND BACK OF NECK; ICE TO GROIN AND AXILLARY TEMP NOW DOWN TO 101.2.
--- NOTE | 2023-01-16 06:19 | NUR ---
Problems reprioritized. Patient report given, questions answered & plan of care reviewed with KOBE JAFFE.
--- NOTE | 2023-01-16 07:10 | NUR ---
Patient in room PCU 3019. I have received report from KOBE MAHONEY, and had the opportunity to ask questions and assume patient care.
[2023-01-16 07:21] LABS: BASOPHILS % (AUTO) 0.4 % (0-1); EOSINOPHILS % (AUTO) 0.6 % (0-6); HEMATOCRIT 29.5 % (35.0-45.0); LYMPHOCYTES # (AUTO) 0.4 X10'3 (1.1-4.8); LYMPHOCYTES % (AUTO) 12.9 % (21-51); MEAN CORPUSCULAR HEMOGLOBIN 30.1 PG (27.0-31.0); MEAN CORPUSCULAR VOLUME 88.4 FL (78-98); MEAN PLATELET VOLUME 10.2 FL (7.4-10.4); MONOCYTES # (AUTO) 0.3 X10'3 (0-0.9); MONOCYTES % (AUTO) 7.6 % (2-12); NEUTROPHILS # (AUTO) 2.7 X10'3 (1.8-7.7); NEUTROPHILS % (AUTO) 78.5 % (42-75); PLATELET COUNT 164 X10'3 (140-440); RED BLOOD COUNT 3.33 X10'6 (4.20-5.60); RED CELL DISTRIBUTION WIDTH 15.7 % (11.5-14.5); WHITE BLOOD COUNT 3.5 X10'3 (4.5-11.0)
[2023-01-16 07:34] LABS: ALBUMIN 1.8 G/DL (3.4-5.0); ANION GAP 10 (8-16); BLOOD UREA NITROGEN 12 MG/DL (7-18); BUN/CREATININE RATIO 18.8 (10.0-20.0); CALCIUM 7.7 MG/DL (8.5-10.1); CHLORIDE 100 MMOL/L (99-107); CREATININE 0.64 MG/DL (0.40-0.90); GLUCOSE 100 MG/DL (70-104); POTASSIUM 4.3 MMOL/L (3.5-5.1); SODIUM 132 MMOL/L (135-145); TOTAL CARBON DIOXIDE 22.4 MMOL/L (24-32); eGFR > 90 ML/MIN
[2023-01-16] MEDS: oxcarbazepine 150mg tablet PO SCH ×2 (07:58→19:54)
[2023-01-16] MEDS: divalproex sodium 500mg tablet.DR PO SCH ×2 (07:58→19:52)
[2023-01-16] MEDS: aspirin 81mg, enteric-coated 1 TAB TABLET.DR PO SCH (07:58)
[2023-01-16] MEDS: pantoprazole 40mg Tablet.DR PO SCH (07:58)
[2023-01-16] MEDS: SIMETHICONE 125 MG CAPSULE PO SCH ×4 (07:59→19:53)
[2023-01-16] MEDS: multivitamins, therapeutics tablet PO SCH (07:59)
[2023-01-16] MEDS: OLANZAPINE 5 MG TABLET PO SCH ×2 (07:59→19:52)
[2023-01-16] MEDS: K and/or MAG REPLACEMENT MC SCH ×2 (08:00→19:42)
[2023-01-16] MEDS: vancomycin/NS 1 GM ADD-VANTAGE 250 ML IV SCH ×2 (11:59→22:23)
--- NOTE | 2023-01-16 13:39 | NUR ---
PAGE SENT PAGER ID: [phone] MESSAGE: [phone], MASOUD TELLEZ, DID YOU WANT TO DO THE CT OF CHEST, ABD, PELVIS? THANK YOU, LD Leiva [phone]
--- NOTE | 2023-01-16 13:51 | NUR ---
RECEIVED WORD FROM SPENSER TO GO AHEAD WITH THE CT SCAN, CT NOTIFIED.
[2023-01-16] MEDS: morphine 2 MG/ML inj. syringe IV PRN (14:17)
--- NOTE | 2023-01-16 18:30 | NUR ---
Patient in room PCU 3019. I have received report from KOBE Joseph and had the opportunity to ask questions and assume patient care.
--- NOTE | 2023-01-16 18:49 | NUR ---
Problems reprioritized. Patient report given, questions answered & plan of care reviewed with KOBE PROCTOR.
[2023-01-16] MEDS: enoxaparin 40mg/0.4ml syringe SUBCUT SCH (19:52)
[2023-01-16] MEDS: Melatonin 3mg tablet PO SCH (19:53)
[2023-01-16] MEDS: olanzapine 10mg tablet PO SCH (19:54)
[2023-01-17] VITALS (10 sets, daily range): BP systolic 96–130; BP diastolic 38–57; PULSE 91–113; RESP 16–28; TEMP 99.2–102.7; O2SAT 93–98
[2023-01-17] MEDS: piperacillin/tazo 3.375gm/50ml 50 ML IV SCH ×4 (00:30→23:36)
[2023-01-17] MEDS: ipratropium/albuterol 3ml nebule NEB SCH ×3 (02:53→10:53)
--- NOTE | 2023-01-17 06:42 | NUR ---
Problems reprioritized. Patient report given, questions answered & plan of care reviewed with KOBE Lake.
--- NOTE | 2023-01-17 07:15 | NUR ---
Patient in room PCU 3019. I have received report from KOBE PROCTOR and had the opportunity to ask questions and assume patient care.
[2023-01-17] MEDS ORDERED: VANCOMYCIN LEVEL IV ONE (09:30)
[2023-01-17] MEDS: OLANZAPINE 5 MG TABLET PO SCH ×2 (09:54→20:24)
[2023-01-17] MEDS: pantoprazole 40mg Tablet.DR PO SCH (09:55)
[2023-01-17] MEDS: aspirin 81mg, enteric-coated 1 TAB TABLET.DR PO SCH (09:55)
[2023-01-17] MEDS: multivitamins, therapeutics tablet PO SCH (09:55)
[2023-01-17] MEDS: divalproex sodium 500mg tablet.DR PO SCH ×2 (09:55→20:23)
[2023-01-17] MEDS: oxcarbazepine 150mg tablet PO SCH ×2 (09:55→20:25)
[2023-01-17] MEDS: SIMETHICONE 125 MG CAPSULE PO SCH ×4 (09:57→20:25)
[2023-01-17] MEDS: K and/or MAG REPLACEMENT MC SCH ×2 (09:58→20:00)
[2023-01-17] MEDS: acetaminophen 325mg tablet PO PRN (10:23)
[2023-01-17] MEDS ORDERED: ipratropium/albuterol 3ml nebule NEB PRN (11:00)
[2023-01-17 12:16] LABS: ALANINE AMINOTRANSFERASE 101 U/L (12-78); ALBUMIN 1.7 G/DL (3.4-5.0); ALBUMIN/GLOBULIN RATIO 0.5 (1.1-1.5); ALKALINE PHOSPHATASE 151 IU/L (46-116); ASPARTATE AMINO TRANSFERASE 112 U/L (10-37); BILIRUBIN,DIRECT 0.2 MG/DL (0-0.3); BILIRUBIN,TOTAL 0.4 MG/DL (0.1-1.0)
[2023-01-17 12:48] LABS: HIV ANTIBODY 1&2 RAPID NON-REACTIVE (Neg)
--- NOTE | 2023-01-17 18:21 | NUR ---
Problems reprioritized. Patient report given, questions answered & plan of care reviewed with KOBE PROCTOR.
--- NOTE | 2023-01-17 18:25 | NUR ---
Patient in room PCU 3019. I have received report from KOBE Lake and had the opportunity to ask questions and assume patient care.
[2023-01-17] MEDS: Melatonin 3mg tablet PO SCH (20:24)
[2023-01-17] MEDS: enoxaparin 40mg/0.4ml syringe SUBCUT SCH (20:24)
[2023-01-17] MEDS: olanzapine 10mg tablet PO SCH (20:25)
[2023-01-18] VITALS (11 sets, daily range): BP systolic 94–127; BP diastolic 40–60; PULSE 90–101; RESP 14–24; TEMP 98.1–100.5; O2SAT 92–98
--- NOTE | 2023-01-18 06:47 | NUR ---
Problems reprioritized. Patient report given, questions answered & plan of care reviewed with KOBE Singh.
[2023-01-18] MEDS: K and/or MAG REPLACEMENT MC SCH ×2 (06:56→20:00)
[2023-01-18 07:06] LABS: CREATINE KINASE 256 U/L (26-192)
[2023-01-18 07:08] LABS: LACTATE DEHYDROGENASE 445 U/L (81-234)
[2023-01-18 07:42] LABS: BASOPHILS % (AUTO) 0.5 % (0-1); EOSINOPHILS # (AUTO) 0.2 X10'3 (0-0.9); EOSINOPHILS % (AUTO) 4.7 % (0-6); LYMPHOCYTES # (AUTO) 0.9 X10'3 (1.1-4.8); LYMPHOCYTES % (AUTO) 25.4 % (21-51); MEAN CORPUSCULAR HEMOGLOBIN 29.4 PG (27.0-31.0); MEAN CORPUSCULAR HGB CONC 33.4 g/dL (33.0-36.5); MEAN CORPUSCULAR VOLUME 87.9 FL (78-98); MEAN PLATELET VOLUME 10.7 FL (7.4-10.4); MONOCYTES # (AUTO) 0.5 X10'3 (0-0.9); MONOCYTES % (AUTO) 12.9 % (2-12); NEUTROPHILS # (AUTO) 2.1 X10'3 (1.8-7.7); NEUTROPHILS % (AUTO) 56.5 % (42-75); PLATELET COUNT 219 X10'3 (140-440); RED BLOOD COUNT 3.07 X10'6 (4.20-5.60); RED CELL DISTRIBUTION WIDTH 16.1 % (11.5-14.5); WHITE BLOOD COUNT 3.7 X10'3 (4.5-11.0)
[2023-01-18 09:35] LABS: ANISOCYTOSIS 1+; HYPOCHROMASIA 2+; PLATELET ESTIMATE NORMAL; TOTAL CELLS COUNTED 100
[2023-01-18 09:36] LABS: SCHISTOCYTES FEW
[2023-01-18] MEDS: pantoprazole 40mg Tablet.DR PO SCH (09:38)
[2023-01-18] MEDS: multivitamins, therapeutics tablet PO SCH (09:38)
[2023-01-18] MEDS: divalproex sodium 500mg tablet.DR PO SCH (09:38)
[2023-01-18] MEDS: aspirin 81mg, enteric-coated 1 TAB TABLET.DR PO SCH (09:38)
[2023-01-18] MEDS: oxcarbazepine 150mg tablet PO SCH ×2 (09:39→19:46)
[2023-01-18] MEDS: piperacillin/tazo 3.375gm/50ml 50 ML IV SCH ×2 (09:39→16:18)
[2023-01-18] MEDS: OLANZAPINE 5 MG TABLET PO SCH ×2 (09:39→19:46)
[2023-01-18] MEDS: SIMETHICONE 125 MG CAPSULE PO SCH ×4 (09:39→21:16)
--- NOTE | 2023-01-18 18:25 | NUR ---
Patient in room PCU 3019. I have received report from KOBE TRAORE and had the opportunity to ask questions and assume patient care.
[2023-01-18] MEDS: Melatonin 3mg tablet PO SCH (19:47)
[2023-01-18] MEDS ORDERED: divalproex sodium 500mg tablet.DR PO SCH (20:00)
[2023-01-18] MEDS: enoxaparin 40mg/0.4ml syringe SUBCUT SCH (20:03)
[2023-01-18] MEDS: olanzapine 10mg tablet PO SCH (20:04)
[2023-01-19] VITALS (9 sets, daily range): BP systolic 90–113; BP diastolic 40–65; PULSE 69–96; RESP 14–24; TEMP 97.2–99.6; O2SAT 92–98
[2023-01-19] MEDS: piperacillin/tazo 3.375gm/50ml 50 ML IV SCH ×2 (00:20→09:10)
--- NOTE | 2023-01-19 06:25 | NUR ---
Problems reprioritized. Patient report given, questions answered & plan of care reviewed with KOBE PEREZ.
[2023-01-19] MEDS: SIMETHICONE 125 MG CAPSULE PO SCH ×4 (08:00→20:48)
[2023-01-19] MEDS: K and/or MAG REPLACEMENT MC SCH ×2 (08:00→19:19)
[2023-01-19] MEDS: multivitamins, therapeutics tablet PO SCH (09:10)
[2023-01-19] MEDS: pantoprazole 40mg Tablet.DR PO SCH (09:11)
[2023-01-19] MEDS: OLANZAPINE 5 MG TABLET PO SCH ×2 (09:11→20:48)
[2023-01-19] MEDS: aspirin 81mg, enteric-coated 1 TAB TABLET.DR PO SCH (09:11)
[2023-01-19] MEDS: oxcarbazepine 150mg tablet PO SCH ×2 (09:11→20:48)
[2023-01-19] MEDS ORDERED: divalproex 250mg tablet, delayed-release PO ONE (10:20)
--- NOTE | 2023-01-19 12:50 | NUR ---
Called Dr Mauricio and advised patients residential care facility manager is here at the hospital and is requesting to speak with her regarding patient plan. Per Dr. Mauricio she will call me back
--- NOTE | 2023-01-19 14:09 | NUR ---
Paged RT for new orders
--- NOTE | 2023-01-19 18:31 | NUR ---
Problems reprioritized. Patient report given, questions answered & plan of care reviewed with Alissa BULLOCK.
[2023-01-19] MEDS: divalproex 250mg tablet, delayed-release PO SCH (20:47)
[2023-01-19] MEDS: olanzapine 10mg tablet PO SCH (20:48)
[2023-01-19] MEDS: Melatonin 3mg tablet PO SCH (20:48)
[2023-01-19] MEDS: enoxaparin 40mg/0.4ml syringe SUBCUT SCH (20:49)
[2023-01-20] VITALS (10 sets, daily range): BP systolic 96–123; BP diastolic 43–65; PULSE 78–94; RESP 14–21; TEMP 97.3–101.1; O2SAT 94–100
[2023-01-20] MEDS: acetaminophen 325mg tablet PO PRN (02:36)
--- NOTE | 2023-01-20 06:36 | NUR ---
Reported off to Sabiha RN. Patient is awake and alert on room air. In no apparent distress. Bed alarms on and audible.
--- NOTE | 2023-01-20 06:40 | NUR ---
Patient in room PCU 3019. I have received report from KOBE Maxwell and had the opportunity to ask questions and assume patient care.
[2023-01-20 06:52] LABS: ALANINE AMINOTRANSFERASE 79 U/L (12-78); ALBUMIN 1.8 G/DL (3.4-5.0); ALBUMIN/GLOBULIN RATIO 0.5 (1.1-1.5); ALKALINE PHOSPHATASE 142 IU/L (46-116); ANION GAP 7 (8-16); ASPARTATE AMINO TRANSFERASE 56 U/L (10-37); BILIRUBIN,TOTAL 0.3 MG/DL (0.1-1.0); BLOOD UREA NITROGEN 11 MG/DL (7-18); CALCIUM 8.4 MG/DL (8.5-10.1); CHLORIDE 101 MMOL/L (99-107); CREATININE 0.61 MG/DL (0.40-0.90); GLUCOSE 91 MG/DL (70-104); POTASSIUM 4.3 MMOL/L (3.5-5.1); SODIUM 136 MMOL/L (135-145); TOTAL CARBON DIOXIDE 27.9 MMOL/L (24-32); TOTAL PROTEIN 5.5 G/DL (6.4-8.2); eGFR > 90 ML/MIN
[2023-01-20] MEDS: K and/or MAG REPLACEMENT MC SCH ×2 (09:19→20:00)
[2023-01-20] MEDS: oxcarbazepine 150mg tablet PO SCH ×2 (10:57→21:55)
[2023-01-20] MEDS: aspirin 81mg, enteric-coated 1 TAB TABLET.DR PO SCH (10:58)
[2023-01-20] MEDS: multivitamins, therapeutics tablet PO SCH (10:58)
[2023-01-20] MEDS: pantoprazole 40mg Tablet.DR PO SCH (10:58)
[2023-01-20] MEDS: SIMETHICONE 125 MG CAPSULE PO SCH ×4 (10:58→21:58)
[2023-01-20] MEDS: divalproex 250mg tablet, delayed-release PO SCH ×2 (10:58→20:01)
[2023-01-20] MEDS: enoxaparin 40mg/0.4ml syringe SUBCUT SCH (20:02)
[2023-01-20] MEDS: Melatonin 3mg tablet PO SCH (21:56)
[2023-01-20] MEDS: OLANZAPINE 5 MG TABLET PO SCH (22:12)
[2023-01-21] VITALS (10 sets, daily range): BP systolic 97–127; BP diastolic 40–70; PULSE 74–100; RESP 16–20; TEMP 97.6–101.5; O2SAT 93–97
[2023-01-21 05:14] LABS: BASOPHILS % (AUTO) 0.3 % (0-1); EOSINOPHILS # (AUTO) 0.3 X10'3 (0-0.9); EOSINOPHILS % (AUTO) 2.6 % (0-6); HEMATOCRIT 31.4 % (35.0-45.0); HEMOGLOBIN 10.5 g/dl (12.0-16.0); LYMPHOCYTES # (AUTO) 1.9 X10'3 (1.1-4.8); LYMPHOCYTES % (AUTO) 19.2 % (21-51); MEAN CORPUSCULAR HEMOGLOBIN 29.7 PG (27.0-31.0); MEAN CORPUSCULAR HGB CONC 33.4 g/dL (33.0-36.5); MEAN CORPUSCULAR VOLUME 88.8 FL (78-98); MEAN PLATELET VOLUME 9.5 FL (7.4-10.4); MONOCYTES % (AUTO) 9.7 % (2-12); NEUTROPHILS # (AUTO) 6.9 X10'3 (1.8-7.7); NEUTROPHILS % (AUTO) 68.2 % (42-75); PLATELET COUNT 425 X10'3 (140-440); RED BLOOD COUNT 3.54 X10'6 (4.20-5.60); WHITE BLOOD COUNT 10.1 X10'3 (4.5-11.0)
[2023-01-21 06:02] LABS: ALANINE AMINOTRANSFERASE 68 U/L (12-78); ALBUMIN 2.1 G/DL (3.4-5.0); ALBUMIN/GLOBULIN RATIO 0.5 (1.1-1.5); ALKALINE PHOSPHATASE 147 IU/L (46-116); ANION GAP 9 (8-16); ASPARTATE AMINO TRANSFERASE 37 U/L (10-37); BILIRUBIN,TOTAL 0.4 MG/DL (0.1-1.0); BLOOD UREA NITROGEN 11 MG/DL (7-18); BUN/CREATININE RATIO 17.7 (10.0-20.0); CALCIUM 8.4 MG/DL (8.5-10.1); CHLORIDE 101 MMOL/L (99-107); CREATININE 0.62 MG/DL (0.40-0.90); GLUCOSE 100 MG/DL (70-104); POTASSIUM 4.7 MMOL/L (3.5-5.1); SODIUM 135 MMOL/L (135-145); TOTAL CARBON DIOXIDE 25.1 MMOL/L (24-32); TOTAL PROTEIN 6.3 G/DL (6.4-8.2); eGFR > 90 ML/MIN
--- NOTE | 2023-01-21 06:20 | NUR ---
Patient in room PCU 3019. I have received report from KOBE Verma and had the opportunity to ask questions and assume patient care.
[2023-01-21 07:42] LABS: TOTAL CELLS COUNTED 100
--- NOTE | 2023-01-21 07:44 | NUR ---
This RN has reviewed and agrees w/the [employer]IAN [employer]'s physical assessment of this pt. Any and all IV medications have been managed and admin by this RN when required.
[2023-01-21 07:45] LABS: LARGE PLATELETS FEW; STOMATOCYTES 1+; TEAR DROP CELLS FEW
[2023-01-21 07:46] LABS: PLATELET ESTIMATE NORMAL
[2023-01-21] MEDS ORDERED: OLANZAPINE 5 MG TABLET PO SCH (08:00)
[2023-01-21] MEDS: K and/or MAG REPLACEMENT MC SCH ×2 (08:00→20:00)
[2023-01-21] MEDS: simethicone 125mg capsule PO SCH ×4 (12:02→20:29)
[2023-01-21] MEDS: oxcarbazepine 150mg tablet PO SCH ×2 (12:02→20:29)
[2023-01-21] MEDS: pantoprazole 40mg Tablet.DR PO SCH (12:02)
[2023-01-21] MEDS: aspirin 81mg, enteric-coated 1 TAB TABLET.DR PO SCH (12:03)
[2023-01-21] MEDS: multivitamins, therapeutics tablet PO SCH (12:03)
[2023-01-21] MEDS: divalproex 250mg tablet, delayed-release PO SCH ×2 (12:03→20:29)
--- NOTE | 2023-01-21 14:21 | NUR ---
F/u 01/21: Pt PO ~85% avg pureed/thin meals meeting estimated needs. LBM 01/19 per EMR. No nutrition interventions at this time. Will continue to follow. Rec: 1. continue pureed/thin diet w/ sippy cup per MD; consider POTATO GRADER BSS if PO tolerance concerns- pureed/thin per POTATO GRADER prior 12/22 admit 2. routine bowel care 3. routine MVI per physician 4. weekly wt Addendum: 01/21/23 at [address] Amended: Links added.
[2023-01-21] MEDS: morphine 2 MG/ML inj. syringe IV PRN (19:00)
[2023-01-21] MEDS: Melatonin 3mg tablet PO SCH (20:29)
[2023-01-21] MEDS: OLANZAPINE 5 MG TABLET PO SCH (20:29)
[2023-01-21] MEDS: enoxaparin 40mg/0.4ml syringe SUBCUT SCH (20:30)
[2023-01-21] MEDS: acetaminophen 325mg tablet PO PRN (22:45)
[2023-01-22] VITALS (7 sets, daily range): BP systolic 116–129; BP diastolic 52–71; PULSE 91–103; RESP 16–24; TEMP 97.6–98.9; O2SAT 94–97
[2023-01-22] MEDS: morphine 2 MG/ML inj. syringe IV PRN (00:17)
--- NOTE | 2023-01-22 06:15 | NUR ---
Patient in room PCU 3019. I have received report from Pat LEON and had the opportunity to ask questions and assume patient care.
[2023-01-22] MEDS: K and/or MAG REPLACEMENT MC SCH ×2 (08:00→20:00)
[2023-01-22] MEDS: simethicone 125mg capsule PO SCH ×4 (09:06→19:32)
[2023-01-22] MEDS: oxcarbazepine 150mg tablet PO SCH ×2 (09:06→19:32)
[2023-01-22] MEDS: aspirin 81mg, enteric-coated 1 TAB TABLET.DR PO SCH (09:06)
[2023-01-22] MEDS: pantoprazole 40mg Tablet.DR PO SCH (09:07)
[2023-01-22] MEDS: multivitamins, therapeutics tablet PO SCH (09:07)
--- NOTE | 2023-01-22 17:08 | NUR ---
AGREE WITH BOAT OFFICER AM ASSESSMENT
[2023-01-22] MEDS: Melatonin 3mg tablet PO SCH (19:32)
[2023-01-22] MEDS: enoxaparin 40mg/0.4ml syringe SUBCUT SCH (19:32)
[2023-01-23] VITALS (10 sets, daily range): BP systolic 106–129; BP diastolic 58–71; PULSE 70–94; RESP 18–24; TEMP 97.9–99.7; O2SAT 93–99
--- NOTE | 2023-01-23 05:23 | NUR ---
AGREE WITH INTERVENTIONAL PHYSICIAN ASSESSMENT
[2023-01-23 06:52] LABS: BASOPHILS % (AUTO) 0.4 % (0-1); EOSINOPHILS # (AUTO) 0.1 X10'3 (0-0.9); EOSINOPHILS % (AUTO) 1.7 % (0-6); HEMOGLOBIN 9.8 g/dl (12.0-16.0); LYMPHOCYTES # (AUTO) 1.8 X10'3 (1.1-4.8); LYMPHOCYTES % (AUTO) 23.5 % (21-51); MEAN CORPUSCULAR HEMOGLOBIN 29.7 PG (27.0-31.0); MEAN CORPUSCULAR HGB CONC 32.8 g/dL (33.0-36.5); MEAN CORPUSCULAR VOLUME 90.4 FL (78-98); MEAN PLATELET VOLUME 8.4 FL (7.4-10.4); MONOCYTES % (AUTO) 12.8 % (2-12); NEUTROPHILS # (AUTO) 4.8 X10'3 (1.8-7.7); NEUTROPHILS % (AUTO) 61.6 % (42-75); PLATELET COUNT 484 X10'3 (140-440); RED BLOOD COUNT 3.31 X10'6 (4.20-5.60); RED CELL DISTRIBUTION WIDTH 16.1 % (11.5-14.5); WHITE BLOOD COUNT 7.9 X10'3 (4.5-11.0)
[2023-01-23 07:19] LABS: CREATINE KINASE 233 U/L (26-192)
[2023-01-23 07:50] LABS: TOTAL CELLS COUNTED 100
[2023-01-23 07:51] LABS: ANISOCYTOSIS 1+; PLATELET ESTIMATE INCREASED
[2023-01-23] MEDS: K and/or MAG REPLACEMENT MC SCH ×2 (08:00→20:00)
[2023-01-23] MEDS: simethicone 125mg capsule PO SCH ×4 (08:16→21:00)
[2023-01-23] MEDS: oxcarbazepine 150mg tablet PO SCH ×2 (08:17→18:54)
[2023-01-23] MEDS: pantoprazole 40mg Tablet.DR PO SCH (08:17)
[2023-01-23] MEDS: aspirin 81mg, enteric-coated 1 TAB TABLET.DR PO SCH (08:17)
[2023-01-23] MEDS: multivitamins, therapeutics tablet PO SCH (08:18)
--- NOTE | 2023-01-23 17:38 | NUR ---
AGREE WITH TRAVEL PTA AM ASSESSMENT
[2023-01-23] MEDS: Melatonin 3mg tablet PO SCH (18:54)
[2023-01-23] MEDS: enoxaparin 40mg/0.4ml syringe SUBCUT SCH (18:55)
[2023-01-24 01:51] VITALS: PULSE 80; RESP 20; TEMP 98.9; O2SAT 96
--- NOTE | 2023-01-24 05:00 | NUR ---
agree with geotechnical department manager assessment
[2023-01-24 06:00] VITALS: BP 95/43; PULSE 85; RESP 24; TEMP 98.5; O2SAT 97
--- NOTE | 2023-01-24 06:56 | NUR ---
Patient in room PCU 3019. I have received report from Stephon LEON and had the opportunity to ask questions and assume patient care.
[2023-01-24] MEDS: oxcarbazepine 150mg tablet PO SCH (07:36)
[2023-01-24] MEDS: simethicone 125mg capsule PO SCH (07:37)
[2023-01-24] MEDS: multivitamins, therapeutics tablet PO SCH (07:37)
[2023-01-24] MEDS: aspirin 81mg, enteric-coated 1 TAB TABLET.DR PO SCH (07:37)
[2023-01-24] MEDS: pantoprazole 40mg Tablet.DR PO SCH (07:37)
[2023-01-24 08:00] VITALS: RESP 24; O2SAT 97
[2023-01-24] MEDS: K and/or MAG REPLACEMENT MC SCH (08:00)
--- NOTE | 2023-01-24 11:43 | NUR ---
Patient was discharged 1130. Discontinued IV and helped caregiver get her dressed. She did not appear to be in pain. She had no tele. Patient left in private vehicle with the voice network administrator of her senior living, Adriano. All belongings sent with patient.
== END 2023-01-24 11:40 | disposition home or self-care (01) | DRG 864 ==
LOC: ER 09:53 → ED HOLD 14:20 → PCU 3S 20:00
PROVIDERS: ADMIT Internal Medicine; ATTEND Internal Medicine
DX: R50.2 Drug induced fever (principal); G93.41 Metabolic encephalopathy; D61.818 Other pancytopenia; L03.311 Cellulitis of abdominal wall; E87.1 Hypo-osmolality and hyponatremia; M62.82 Rhabdomyolysis; D70.2 Other drug-induced agranulocytosis; T50.905A Adverse effect of unspecified drugs, medicaments and biological substances, initial encounter; K04.7 Periapical abscess without sinus; Z20.822 Contact with and (suspected) exposure to COVID-19; T50.2X5A Adverse effect of carbonic-anhydrase inhibitors, benzothiadiazides and other diuretics, initial encounter; G40.909 Epilepsy, unspecified, not intractable, without status epilepticus; R00.0 Tachycardia, unspecified; R79.89 Other specified abnormal findings of blood chemistry; I95.9 Hypotension, unspecified; Y92.89 Other specified places as the place of occurrence of the external cause; Z88.8 Allergy status to other drugs, medicaments and biological substances; Z86.718 Personal history of other venous thrombosis and embolism; Z79.899 Other long term (current) drug therapy
CPT/HCPCS: 36415; 71045; 71250; 74176; 76700; 80048; 80053; 80076; 80156; 80164; 80202; 81001; 81003; 82550; 83605; 83615; 83690; 83735; 83880; 84100; 84145; 84484; 85007; 85025; 85379; 85651; 86703; 87040; 87811; 93970; 94640; 94760; 97110; 97161; 97530; 97535; 99285; A6213; C1758; G0378; J0696; J1650; J2270; J2543; J3370; J7030; J7120